=== PATIENT | male | born 1990 | race Caucasian/White ===

== ENCOUNTER 2017-04-05 15:24 | Inpatient (IN) | payer BC, OTHER ==
[~2017-04-05] VITALS: Ht 175.3 cm; Wt 88.5 kg
[2017-04-05 20:30] VITALS: BP 117/63
--- NOTE | 2017-04-05 20:30 | NUR ---
Pre-admission assessment Patient is a 27-year old, male, seen at intake, AAOx4, no SOB and no anxiety noted at this time. Discussed with patient admission policies of the unit. Patient is coherent and able to respond to questions appropriately. Patient reported that he is homeless. Pt is ambulatory with steady gait. Pt reports that he uses Xanax, Phenobarbital, Subutex, Heroin, Alcohol and Cannabis. Per pt, he is originally from [place] but has lived here in [facility] for several months. Vital signs taken and as follows: DZ=188/63, P=104, O2 sat on RA=98%, RR=20, T=98.4. Pt verbalized instructions and teachings regarding disposal of narcotic and other controlled home meds, unit protocols such as taking of vital signs Q4H and handling and disposal of contraband.
[2017-04-05 21:00] VITALS: BP 108/52
[2017-04-05] MEDS ORDERED: NICOTINE 14 MG/24HR PATCH TD PRN (21:00)
[2017-04-05] MEDS ORDERED: MAG HYDROX/AL HYDROX/SIMETH 30 ML LIQUID UDC PO PRN (21:00)
[2017-04-05] MEDS ORDERED: BUPRENORPHINE HCL 2 MG TAB.SUBL SL PRN (21:00)
[2017-04-05] MEDS ORDERED: diphenhydrAMINE 50 MG CAPSULE PO PRN (21:00)
[2017-04-05] MEDS ORDERED: MIRALAX 17 GM POWD.PACK PO PRN (21:00)
[2017-04-05] MEDS ORDERED: ONDANSETRON 4 MG/2 ML VIAL IM PRN (21:00)
[2017-04-05] MEDS ORDERED: DICYCLOMINE HCL 20 MG TABLET PO PRN (21:00)
[2017-04-05] MEDS ORDERED: DIAZEPAM 10 MG TABLET PO PRN ×2 (21:00)
[2017-04-05] MEDS ORDERED: LOPERAMIDE HCL 2 MG CAPSULE PO PRN ×2 (21:00)
[2017-04-05] MEDS ORDERED: ONDANSETRON ODT 4 MG TAB.RAPDIS SL PRN (21:00)
[2017-04-05] MEDS ORDERED: DIAZEPAM 5 MG TABLET PO PRN (21:00)
[2017-04-05] MEDS ORDERED: THIAMINE HCL 200 MG/2 ML VIAL IM ONE (21:00)
[2017-04-05] MEDS ORDERED: NICOTINE POLACRILEX 4 MG GUM-PK OF TEN BC PRN (21:00)
[2017-04-05] MEDS ORDERED: LORAZEPAM 2 MG/1 ML VIAL IM PRN (21:00)
[2017-04-05] MEDS ORDERED: MAGNESIUM HYDROXIDE 30 ML LIQUID UDC PO PRN (21:00)
--- NOTE | 2017-04-05 21:15 | NUR ---
ADMISSION Patient is a 27-year old, male, admitted and escorted by [facility] at 2055 to unit. Patient verbalized that he originally is from [place] but has since for several months is living here in [facility]. Skin check done, no open skin noted. Patient denies Suicidal Ideation nor Homicidal Ideation. No edema noted. Pt is ambulatory with steady gait. Pt stands 5'9" and weighs 195 pounds per standing scale. Vital signs are as follows: BP-108/52, T-98.1, P-107, RR-16 and SPO2 on RA=97%. Patient is AAOx4 and with mild anxiety noted at this time. Lung sounds clear bilaterally upon auscultation. No cough noted and bowel sounds are present on all quadrants. PERRLA and pupils are 3 mm upon visual check. Pt reports being allergic to Naloxone, on Regular Diet and is Full Code. 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 Per pt, withdrawal symptoms are sweating, hot and cold flushes, flu-like symptoms, nausea and vomiting, diarrhea, tremors, anxiety, emotional and photophobia. Pt reports using the following substances: 1) Xanax-started at age 18, reports using 10-12 mg PO or snort daily for the past 12 months, last use was 04/05/2017 AM, 6 mg PO. 2) Phenobarbital-started at age 20, reports using 100 mg PO daily for the past 6 months, last use was 04/05/2017 AM, 100 mg PO 3) Subutex-started at age 20, reports using 16 mg SL daily for the past 6 months, last use was 04/05/2017 AM, 16 mg SL. 4) Heroin-started at age 18, reports using 1-1.5 gms IV, 2x this month03/2017 and per pt, he would use Heroin if he cant have Subutex. Last use was 03/26/2017 AM, 1 gm IV. 5) Ehstmbp-Brijv-gjywlpi at age 18, reports consuming 1500 ml daily for the past 3 months, last drink was 04/05/2017 AM, 1500 ml of 100 proof Vodka. 6) Cannabis-started at age 18, reports smoking 4 mg daily x 9 years, last use was 04/05/2017OM, 4 mg smokes. Patient verbalized the he does not take other substances besides the ones mentioned above. Patient informed PMHx of Anxiety, Depression, Hepatitis C carrier of antibodies, Bipolar Disorder and Withdrawal-induced Seizures-last seizure was in 2010. Per pt, he has no PCP nor Psych MD as of the moment. Home medications are entered in the med recon tab. Patient reports vaping daily, and if he cannot vape then he smokes cigarettes, finishing about 1 pack weekly on average. Oriented patient to room and instructed with the use of the call light, placed within reach. Fall, universal, seizure and safety precautions implemented. No c/o significant pain at this time. All needs met. Information relayed to Dr. Lopez. Patient refused PNA vaccine and Flu vaccine is updated-01/2017. COWS=12 CIWA=11. Will continue to monitor.
[2017-04-05] MEDS ORDERED: LAMO25TA PO (21:16)
[2017-04-05] MEDS ORDERED: LACT10SO PO (21:16)
[2017-04-05] MEDS ORDERED: BUPR8TAB4 SL (21:16)
[2017-04-05] MEDS ORDERED: PHEN16.22 PO (21:16)
[2017-04-05] MEDS ORDERED: TRAZ-147 PO (21:16)
[2017-04-05 21:38] LABS: *AMPHETAMINE, URINE NEGATIVE (NEGATIVE); *BARBITURATE, URINE POSITIVE (NEGATIVE); *CANNABINOID, URINE POSITIVE (NEGATIVE); *COCCAINE, URINE NEGATIVE (NEGATIVE); *OPIATE, URINE NEGATIVE (NEGATIVE); *PHENCYCLIDINE SCREEN,URINE NEGATIVE (NEGATIVE)
[2017-04-05 21:43] LABS: BASOPHILS # (AUTO) 0.1 K/uL (0.0-8.0); BASOPHILS % (AUTO) 0.4 % (0.0-2.0); EOSINOPHILS # (AUTO) 0.5 K/uL (0.0-0.7); EOSINOPHILS % (AUTO) 3.7 % (0.0-7.0); HEMOGLOBIN 14.6 G/DL (14.0-18.0); LYMPHOCYTES # (AUTO) 1.6 K/UL (0.8-4.8); LYMPHOCYTES % (AUTO) 12.1 % (20.5-51.5); MEAN CORPUSCULAR HGB CONC 34 g/dL (32.0-37.0); MEAN CORPUSCULAR VOLUME 88.3 FL (82.0-92.0); MONOCYTES # (AUTO) 0.5 K/UL (0.1-1.30); MONOCYTES % (AUTO) 3.8 % (0.0-11.0); NEUTROPHILS # (AUTO) 10.7 K/UL (1.8-8.9); PLATELET COUNT (AUTO) 284 K/UL (150-450); RED BLOOD CELL COUNT(AUTO) 4.87 MIL/UL (4.7-6.1); WHITE BLOOD COUNT (AUTO) 13.4 K/UL (4.0-11.2)
[2017-04-05 21:48] LABS: ALANINE AMINOTRANSFERASE 40 U/L (16-63); ALKALINE PHOSPHATASE 98 U/L (50-136); AMYLASE 48 U/L (25-115); ASPARTATE AMINOTRANSFERASE 26 U/L (15-37); BILIRUBIN,TOTAL 0.5 mg/dL (0.2-1.0); CARBON DIOXIDE 29 mmol/L (21-32); CHLORIDE 103 mmol/L (98-107); CREATININE 1.1 mg/dL (0.6-1.3); GLUCOSE 89 mg/dL (74-106); POTASSIUM 4.2 mmol/L (3.5-5.1); TOTAL PROTEIN, SERUM 7.2 g/dL (6.4-8.2); UREA NITROGEN, BLOOD 18 mg/dL (7-18)
[2017-04-05 21:54] LABS: ETHANOL < 3 MG/DL (0-0)
[2017-04-05] MEDS ORDERED: PHENOBARBITAL 60 MG TABLET PO SCH (22:00)
--- NOTE | 2017-04-05 22:17 | NUR ---
RN note PRN Subutex Pt noted to be anxious and increasingly shaky. COWS=8. Administered Subutex 4 mg SL. Will reassess. Addendum: 04/05/17 at 2222 by REINALDO JIMENEZ RN COWS=13, and not 8
[2017-04-05] MEDS ORDERED: THIAMINE HCL 200 MG/2 ML VIAL ONE (22:18)
[2017-04-05] MEDS ORDERED: PHENOBARBITAL 60 MG TABLET ONE (22:18)
[2017-04-05] MEDS ORDERED: BUPRENORPHINE HCL 2 MG TAB.SUBL SL ONE (22:29)
--- NOTE | 2017-04-05 23:24 | NUR ---
RN note reassess Pt asleep on bed, no SOB nor facial grimacing noted. COWS=8.
[2017-04-06] VITALS (7 sets, daily range): BP systolic 92–135; BP diastolic 41–80
--- NOTE | 2017-04-06 07:17 | NUR ---
End of Shift Patient is a 27-year old, male, admitted for Alcohol, Opiates and Benzodiazepines Dependence. Pt is allergic to Naloxone, on Regular Diet and is Full Code. 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 Pt placed on 5-day Phenobarbital taper and 5-day Subutex taper, to start today. Pt is AAOx4, is ambulatory with steady gait and with no skin issues. No anxiety noted. No SOB noted. Fall, universal, seizure and safety prec in place. Call light within reach. Latest COWS-6 and CIWA-5, slept for 6 hours. Endorsed to AM shift nurse for continuity of care.
--- NOTE | 2017-04-06 07:30 | NUR ---
START OF SHIFT Pt 27 y/o male admitted for etoh, opiate, and benzo dependence. Pt received in room on bed with eyes closed resting, but easily arousable to name. Pt alert and oriented to name, place, and time. Perrla. Skin warm and slightly moist to touch. Respirations even and unlabored. Bilateral hand tremors noted. It was reported that pt slept for 6 hours of sleep last night. Bed on lowest position with side rails x2 up for safety. Call light within reach. No distress noted at this time.
[2017-04-06] MEDS: MULTIVITAMINS,THERAPEUTIC TABLET PO SCH (08:59)
[2017-04-06] MEDS: PHENOBARBITAL 60 MG TABLET PO SCH ×3 (08:59→20:40)
[2017-04-06] MEDS: FOLIC ACID 1 MG TABLET PO SCH (08:59)
[2017-04-06] MEDS: THIAMINE HCL 100 MG TABLET PO SCH (08:59)
[2017-04-06] MEDS ORDERED: BUPRENORPHINE HCL 2 MG TAB.SUBL SL SCH (09:00)
[2017-04-06] MEDS ORDERED: GABAPENTIN 300 MG CAPSULE PO SCH (09:00)
[2017-04-06] MEDS ORDERED: TUBERCULIN,PURIF.PROT.DERIV. 5 TU/0.1 ML TEST ID ONE (09:00)
--- NOTE | 2017-04-06 12:28 | NUR ---
PRN Pt states feels nauseated. Zofran po odt prn per MD order given and tolerated well.
[2017-04-06] MEDS ORDERED: DIAZEPAM 10 MG TABLET PO ONE (12:45)
--- NOTE | 2017-04-06 13:09 | NUR ---
ONE TIME Pt was seen by MD. ciwa=17. Pt received valium 20mg po x1 dose per MD order and tolerated well.
--- NOTE | 2017-04-06 13:28 | NUR ---
ALISON NICE Pt states he does not feel nauseous at this time.
--- NOTE | 2017-04-06 14:09 | NUR ---
ONE TIME EVAL Pt with ciwa=8.
[2017-04-06] MEDS: GABAPENTIN 300 MG CAPSULE PO SCH ×2 (14:37→20:40)
[2017-04-06] MEDS: BUPRENORPHINE HCL 2 MG TAB.SUBL SL SCH ×2 (14:38→21:07)
[2017-04-06] MEDS: METHOCARBAMOL 750 MG TABLET PO PRN (15:16)
--- NOTE | 2017-04-06 15:17 | NUR ---
PRN Pt states has lower back ache 6/10. Robaxin po prn per MD order given and tolerated well.
--- NOTE | 2017-04-06 16:02 | NUR ---
PRN Pt with ciwa=17. Pt observed with perspiration on face and shoulders, pressured speech, bilateral hand tremors, anxious, and very irritable. Valium 20mg po prn per MD order given and tolerated well.
--- NOTE | 2017-04-06 16:17 | NUR ---
PRN ARLET Pt states back aches 07/22.
--- NOTE | 2017-04-06 17:02 | NUR ---
PRN EVAL Pt with ciwa=6.
--- NOTE | 2017-04-06 18:33 | NUR ---
END OF SHIFT Pt 27 y/o male admitted for etoh, opiate, and benzo dependence. Pt alert and oriented to name, place, and time. Perrla. Skin warm and slightly moist to touch. Respirations even and unlabored. Bilateral hand tremors noted. Pt with episodes of chills and sweats this morning. Pt also with periods of anxiety/ agitation throughout the day. Pt observed mostly in room today. Pt did not attend group activity. Pt was seen by MD today. Pt medication compliant and tolerated well. No ASE noted. Bed on lowest position with side rails x2 up for safety. Call light within reach. No distress noted at this time.
[2017-04-06] MEDS: CLONIDINE HCL 0.1 MG TABLET PO PRN (18:52)
--- NOTE | 2017-04-06 18:53 | NUR ---
PRN Pt with bp= 142/92. Catapres po prn per MD order given and tolerated well.
--- NOTE | 2017-04-06 19:05 | NUR ---
Start of Shift Patient Received. Patient is a 27 year old male admitted on 04/05/17 for ETOH, Opiate, and Benzo Dependence under the care of Dr. Lopez. Patient is currently receiving a 5 day phenobarbital and 5 day Subutex tapers with PRN Valium noted on hand for increased signs and symptoms of withdrawal. Patient verbalizes allergies to Naloxone, wishes to be full code, following a regular diet, placed on fall and seizure precautions, and skin noted intact. Past medical history noted as anxiety, depression, hep C (+), Bipolar Disorder, with history of seizures with last one noted in 2010. Per endorsement, Patient is noted to be high risk for AMA with administration staff aware. Patient received an extra dose of Valium 20mg as well as PRN Valium 20mg for elevated CIWA. Patient was also given PRN Clonidine with medication noted to be effective. Patient noted to be labile, very poor concentration, and pre-concerned with medications despite redirection. All needs attended to promptly. Will continue plan of care as ordered.
[2017-04-07 00:54] VITALS: BP 117/68
[2017-04-07] MEDS: METHOCARBAMOL 750 MG TABLET PO PRN ×2 (00:56→17:59)
[2017-04-07] MEDS: TRAZODONE 100 MG TABLET PO PRN ×2 (00:56→20:46)
[2017-04-07] MEDS: IBUPROFEN 600 MG TABLET PO PRN ×2 (00:56→17:59)
--- NOTE | 2017-04-07 01:00 | NUR ---
PRN Medication Administration Patient is verbalizing increased muscle spasms, pain 7/10 generalized body aches, and inability of falling asleep. PRN Robaxin, Motrin, and trazodone administered as per order. Will continue to monitor.
--- NOTE | 2017-04-07 02:00 | NUR ---
PRN Medication Reassessment Patient noted in bed sleeping. Breathing even and non labored. Patient was given PRN Motrin, Robaxin, and trazodone. Patient continues to sleep with no interruptions noted. Will continue to monitor.
[2017-04-07 04:05] VITALS: BP 102/63
--- NOTE | 2017-04-07 07:08 | NUR ---
End of Shift Patient is in bed sleeping. Breathing even and non labored. Patient is a 27 year old male admitted on 04/05/17 for ETOH, Opiate, and Benzo Dependence under the care of Dr. Lopez. Patient is currently receiving a 5 day phenobarbitol and 5 day Subutex tapers with PRN Valium noted on hand for increased signs and symptoms of withdrawal. Patient verbalizes allergies to Naloxone, Full Code, Regular Diet, placed on fall and seizure precautions, and skin noted intact. Past medical history noted as anxiety, depression, hep C (+), Bipolar Disorder, with history of seizures with last one noted in 2010. Patient received PRN Robaxin, Motrin, and Trazodone with medications noted to be effective. patient continues to be labile, very poor attention spasm, and pre-concerned with medications despite redirection. Last noted COWS 4 and CIWA 5. All needs attended to promptly. Will endorse continue plan of care as ordered.
[2017-04-07 08:00] VITALS: BP 100/63
--- NOTE | 2017-04-07 08:15 | NUR ---
START OF SHIFT: RECEIVED PT A/O X 4. HE C/O ANXIETY AND RESTLESSNESS. HE REPORTS FEELING HOT AND COLD AT TIMES. MILD MUSCLE ACHES ALSO REPORTED. SUBUTEX/PHENO TAPER IN PROGRESS TO MANAGE S/S OF W/D.COWS 4 CIWA 3. ENCOURAGED INCREASED FLUIDS. ENCOURAGED GROUP ATTENDANCE TO IMPROVE COPING SKILLS AND PREVENT RELAPSE. WILL CONTINUE TO MONITOR.
[2017-04-07] MEDS ORDERED: BUPRENORPHINE HCL 2 MG TAB.SUBL SL SCH ×2 (09:00→15:00)
[2017-04-07] MEDS: MULTIVITAMINS,THERAPEUTIC TABLET PO SCH (09:45)
[2017-04-07] MEDS: FOLIC ACID 1 MG TABLET PO SCH (09:45)
[2017-04-07] MEDS: THIAMINE HCL 100 MG TABLET PO SCH (09:46)
[2017-04-07] MEDS: GABAPENTIN 300 MG CAPSULE PO SCH ×3 (09:46→20:44)
[2017-04-07] MEDS: BUPRENORPHINE HCL 2 MG TAB.SUBL SL SCH ×3 (09:46→20:45)
[2017-04-07] MEDS: PHENOBARBITAL 60 MG TABLET PO SCH ×3 (09:47→20:44)
[2017-04-07 12:00] VITALS: BP 126/64
[2017-04-07] MEDS ORDERED: CLONIDINE HCL 0.1 MG TABLET PO ONE (12:30)
[2017-04-07] MEDS ORDERED: DIAZEPAM 10 MG TABLET PO ONE (12:30)
[2017-04-07] MEDS ORDERED: HYDROXYZINE PAMOATE 25 MG CAPSULE PO ONE (12:30)
[2017-04-07] MEDS ORDERED: HYDROXYZINE PAMOATE 25 MG CAPSULE PO PRN (12:30)
--- NOTE | 2017-04-07 12:42 | NUR ---
Therapist prompted client to come into group today and not isolate in his room. Client agreed to come to group.
[2017-04-07] MEDS: ACETAMINOPHEN 325 MG TABLET PO PRN ×2 (12:53→20:44)
[2017-04-07] MEDS: BACLOFEN 10 MG TABLET PO SCH ×2 (14:28→20:43)
[2017-04-07 16:00] VITALS: BP 131/70
[2017-04-07] MEDS: CLONIDINE HCL 0.1 MG TABLET PO PRN (17:59)
--- NOTE | 2017-04-07 18:03 | NUR ---
PRN MOTRIN,ROBAXIN,CLONIDINE AND VISTARIL GIVEN FOR REPORTED MUSCLE ACHES,H/A 5/10 ON SCALE ANXIETY AND CHILLS. WILL MONITOR EFFECTIVENESS.
--- NOTE | 2017-04-07 18:44 | NUR ---
PT STATES PRN MEDS WERE MILDLY EFFECTIVE.HE STATES H/A IS GONE.
--- NOTE | 2017-04-07 18:45 | NUR ---
END OF SHIFT: PT CONTINUES ON PHENO.SUBUTEX TAPER. HE WAS GIVEN A ONE TIME 10 MG VALIUM PER MD AND IT WAS EFFECTIVE. PT TRIED TO GET PRN VALIUM LATE THIS AFTERNOON BUT CIWA SCORES DID NOT PERMIT. ADMINISTERED PRN CLONIDINE,VISTARIL,MOTRIN AND ROBAXIN GIVEN AND MILDLY EFFECTIVE FOR S/S OF W/D. LAST COWS 4 CIWA 4. ENCOURAGED OT TO INCREASE FLUIDS. PT EDUCATED ON DEEP BREATHING EXERCISES TO ASSIST IN RELIEVING ANXIETY. WILL PASS SHIFT REPORT TO ONCOMING NIGHT NURSE.
--- NOTE | 2017-04-07 19:00 | NUR ---
Start of Shift Note: Report received from day shift nurse. Pt is a 27M, admitted for Benzo, Phenobarb, Opiate, ETOH dependence. Pt was in group activity during the start of shift. Pt is AOx4 without s/s of acute distress. Pt is full code, on regular diet, and on fall/seizure precautions. Pt noted with allergy to Naloxone. Pt reports hx of anxiety, depression, hep C, Bipolar disorder, and withdrawal-induced seizures. Pt is currently on 5-day Phenobarbital taper and 5-day Subutex taper to manage withdrawal symptoms. Per day shift nurse. Last COWS was 4 and last CIWA was 4 at 1600. Bed in lowest position. Side rails up x2. Call light functioning and within reach. All needs attended and met. Will continue to monitor.
[2017-04-07 20:00] VITALS: BP 126/74
[2017-04-07] MEDS: CLONIDINE HCL 0.1 MG TABLET PO SCH (20:45)
--- NOTE | 2017-04-07 20:45 | NUR ---
PRN Tylenol and PRN Trazodone: Pt c/o of 01/22 pain. Pt stated that he is having migraines. Pt also requested medication for sleep. PRN Tylenol and PRN Trazodone given as ordered. Will continue to monitor.
--- NOTE | 2017-04-07 21:45 | NUR ---
PRN Tylenol and PRN Trazodone Reassessment: Pt stated headache is better. Pain level 3/10. Pt is also feeling effects of Trazodone and is ready for sleep. Will continue to monitor.
[2017-04-08] VITALS: BP 111/63
[2017-04-08 04:00] VITALS: BP 128/83
[2017-04-08 05:06] LABS: HEPATITIS B SURFACE AG Negative (Negative)
[2017-04-08] MEDS: METHOCARBAMOL 750 MG TABLET PO PRN (06:00)
--- NOTE | 2017-04-08 06:00 | NUR ---
Toradol PRN and Robaxin PRN: Pt c/o worse migraine 12/22. Pt also c/o general body aches. Toradol PRN and Robaxin PRN given as ordered. Will continue to monitor.
[2017-04-08] MEDS: KETOROLAC TROMETHAMINE 30 MG INJ IM PRN (06:02)
--- NOTE | 2017-04-08 07:21 | NUR ---
End of Shift Notes: Pt is 27M, a 27M, admitted for Benzo, Phenobarb, Opiate, ETOH dependence. Pt is AOx4 without s/s of acute distress. Pt is full code, on regular diet, and on fall/seizure precautions. Pt noted with allergy to Naloxone. Pt reports hx of anxiety, depression, hep C, Bipolar disorder, and withdrawal-induced seizures. Pt is currently on 5-day Phenobarbital taper and 5-day Subutex taper to manage withdrawal symptoms. Pt slept for 7 hours. Last COWS score was 13 and last CIWA score was 8 at 0400. Pt c/o Migraine and generalized body pain. Tylenol, Robaxin, and Toradol PRN given as ordered. No N/V noted during the shift. Fall and Sz precautions observed. Bed in lowest position. Side rails up x2. Call light functioning and within reach. All needs attended and met. Will endorse to day shift nurse.
--- NOTE | 2017-04-08 07:39 | NUR ---
START OF SHIFT NOTE: Received report from chair and couch maker nurse. Pt 27 y/o male admitted for etoh, opiate, and benzo dependence. Pt is on a 5 day Phenobarb and 5 day Subutex taper. Tolerating well. Pt is alert and oriented X4. Color good, skin warm and dry. Resting in bed. Safety precautions observed. Call light within reach. Will continue to monitor.
[2017-04-08 08:19] VITALS: BP 119/83
[2017-04-08] MEDS: PHENOBARBITAL 60 MG TABLET PO SCH ×4 (08:44→20:10)
[2017-04-08] MEDS: MULTIVITAMINS,THERAPEUTIC TABLET PO SCH (08:46)
[2017-04-08] MEDS: FOLIC ACID 1 MG TABLET PO SCH (08:46)
[2017-04-08] MEDS: THIAMINE HCL 100 MG TABLET PO SCH (08:46)
[2017-04-08] MEDS: GABAPENTIN 300 MG CAPSULE PO SCH (08:46)
[2017-04-08] MEDS: CLONIDINE HCL 0.1 MG TABLET PO SCH ×3 (08:47→20:10)
[2017-04-08] MEDS: BACLOFEN 10 MG TABLET PO SCH (08:47)
[2017-04-08] MEDS ORDERED: BUPRENORPHINE HCL 2 MG TAB.SUBL SL SCH ×2 (09:00)
--- NOTE | 2017-04-08 09:00 | NUR ---
VSS COWS 6 CIWA 2 Pt c/o mild body aches, runny nose, sweating. Pt refused Subutex. States "I want to get off the stuff."
--- NOTE | 2017-04-08 09:10 | NUR ---
Flu shot administered LD Addendum: 04/08/17 at 1012 by YUDELKA SMITH RN Please disregard above
[2017-04-08 12:00] VITALS: BP 126/72
[2017-04-08] MEDS: DIAZEPAM 10 MG TABLET PO SCH ×2 (12:56→20:10)
--- NOTE | 2017-04-08 13:00 | NUR ---
VSS CIWA 7 c/o anxiety, muscle aches, stuffy nose
[2017-04-08] MEDS: BACLOFEN 20 MG TABLET PO SCH ×2 (14:21→20:10)
[2017-04-08] MEDS: GABAPENTIN 400 MG CAPSULE PO SCH ×2 (14:21→20:10)
[2017-04-08 17:06] VITALS: BP 128/78
--- NOTE | 2017-04-08 18:29 | NUR ---
END OF SHIFT NOTE: Report given to third shift lieutenant nurse. Pt 27 y/o male admitted for etoh, opiate, and benzo dependence. Pt is on a 5 day Phenobarb taper. Subutex taper dc'd. Tolerating well. Pt is alert and oriented X4. Color good, skin warm and dry. Safety precautions observed. Vital signs have remained stable throughout shift. Last CIWA 7 . Safety precautions observed .Call light within reach.
--- NOTE | 2017-04-08 19:10 | NUR ---
Start of shift note Received report from day shift nurse. Pt is a 27 yo male, A+Ox4, presenting to [facility] for Opiate/Benzo/ETOH dependence. Pt has Allergies to Naloxone, is on Full code status, and on Regular diet. Pt is on Fall and Seizure precautions. Pt has HX of Anxiety, depression, Hep C, Bipolar disorder, and Seizure. Pt is on 5 day Phenobarbital and 5 day Valium taper, tolerated well. No s/s of distress noted at this time. Respirations even and unlabored. Will continue to monitor.
[2017-04-08 20:10] VITALS: BP 121/71
[2017-04-08] MEDS: TRAZODONE 100 MG TABLET PO PRN (20:18)
--- NOTE | 2017-04-08 20:18 | NUR ---
PRN Trazodone Pt c/o inability to sleep and requested for PRN Trazodone. Medication given and tolerated well. Will reassess within1 HR. Will continue to monitor.
--- NOTE | 2017-04-08 21:15 | NUR ---
PRN Trazodone Reassessment Medication effective. Pt is resting well in bed. No s/s of ASE/distress noted at this time. Respirations even and unlabored. Will continue to monitor.
[2017-04-09 00:11] VITALS: BP 119/68
[2017-04-09 04:14] VITALS: BP 114/63
--- NOTE | 2017-04-09 06:54 | NUR ---
End of shift note Pt is a 27 yo male, A+Ox4, presenting to [facility] for Opiate/Benzo/ETOH dependence. Pt has Allergies to Naloxone, is on Full code status, and on Regular diet. Pt is on Fall and Seizure precautions. Pt has HX of Anxiety, depression, Hep C, Bipolar disorder, and Seizure. Pt is on 5 day Phenobarbital and 5 day Valium taper, tolerated well. Pt was given PRN Trazodone @2018. Pt slept for a total of 6 HRS. Last COWS: 3 and Last CIWA: 3 @0400. No s/s of distress noted at this time. Respirations even and unlabored. Will endorse to day shift nurse.
--- NOTE | 2017-04-09 07:55 | NUR ---
START OF SHIFT NOTE Received report from night nurse, 49 year old male admitted for Opiate/Benzo/ETOH dependence. Patient has a PMH of Anxiety, depression, Hep C, Bipolar disorder, and Seizure. Patient is on 5 day Phenobarbital and 5 day Valium taper. Per endorsement patient received PRN Trazodone effective per night nurse, last COWS-3, CIWA-3, slept for 6 hours. Patient received awake, alert and oriented x4, Educated patient regarding plan of care for the day and medication regimen with good verbal understanding. Safety measures in place. call light with in reach, will continue to monitor. Addendum: 04/11/17 at 0752 by CLAUDIA GODDARD LVN Patient is 27 year old male.
[2017-04-09 08:00] VITALS: BP 110/66
[2017-04-09] MEDS: FOLIC ACID 1 MG TABLET PO SCH (08:06)
[2017-04-09] MEDS: THIAMINE HCL 100 MG TABLET PO SCH (08:06)
[2017-04-09] MEDS: MULTIVITAMINS,THERAPEUTIC TABLET PO SCH (08:06)
[2017-04-09] MEDS: BACLOFEN 20 MG TABLET PO SCH ×3 (08:06→20:43)
[2017-04-09] MEDS: PHENOBARBITAL 60 MG TABLET PO SCH ×3 (08:07→20:43)
[2017-04-09] MEDS: GABAPENTIN 400 MG CAPSULE PO SCH (08:07)
[2017-04-09] MEDS: CLONIDINE HCL 0.1 MG TABLET PO SCH ×2 (08:08→14:11)
[2017-04-09] MEDS ORDERED: BUPRENORPHINE HCL 2 MG TAB.SUBL SL SCH ×3 (09:00→21:00)
[2017-04-09] MEDS: HYDROXYZINE PAMOATE 25 MG CAPSULE PO PRN (09:56)
[2017-04-09] MEDS: KETOROLAC TROMETHAMINE 30 MG INJ IM PRN (10:04)
--- NOTE | 2017-04-09 10:04 | NUR ---
PRN TORADOL/VISTARIL Patient c/o of anxiety, agitation, lower back pain 12/22. Medicated patient with PRN Vistaril 50mg Po, Toradol 30mg IM as ordered. Will cont to monitor and reassess.
--- NOTE | 2017-04-09 10:34 | NUR ---
TORADOL REASSESSMENT Patient reported Toradol effective in alleviating pain, pain level noted 2/10.
--- NOTE | 2017-04-09 11:04 | NUR ---
VISTARIL REASSESSMENT Upon reassessment patient reported medication effective anxiety and agitation decreased.
[2017-04-09] MEDS ORDERED: CLONIDINE HCL 0.2 MG TABLET PO PRN (11:45)
[2017-04-09 12:00] VITALS: BP 136/73
[2017-04-09] MEDS: DIAZEPAM 10 MG TABLET PO SCH ×2 (12:12→20:43)
[2017-04-09] MEDS: CLONIDINE HCL 0.1 MG TABLET PO PRN (12:12)
[2017-04-09] MEDS: METHOCARBAMOL 750 MG TABLET PO PRN (12:12)
--- NOTE | 2017-04-09 12:13 | NUR ---
Robaxin 750mg PO given/Clonidine 0.1mg PO given: Patient's CIWA 7, appears anxious, tearful and agitated with complains of 6/10 pain. Non-pharmacological interventions provided but ineffective. Medicated patient with Robaxin 750 mg PO and Clonidine 0.1mg PO as ordered.
--- NOTE | 2017-04-09 13:13 | NUR ---
ROBAXIN/CLONIDINE REASSESSMENT Patient reported medication effective in alleviating pain 2/10 and anxiety.
[2017-04-09] MEDS: GABAPENTIN 300 MG CAPSULE PO SCH ×2 (14:11→20:43)
[2017-04-09 16:00] VITALS: BP 122/71
--- NOTE | 2017-04-09 19:18 | NUR ---
END OF SHIFT NOTE Patient cont with Phenobarbital taper and Valium taper tolerating well. Patient presented with anxiety, Chills hot cold flashes, body aches, agitation, Tremors, stomach cramps, Scheduled /PRN Toradol, clonidine, Robaxin, Vistaril medications administered noted to be effective. Pt Encouraged Po fluids as tolerated. Pt's last COWS score was 4/CIWA-3 at 1600. Vital signs WNL. All needs met. Safety measures in place, call light within reach. Pt endorsed to night nurse in stable condition.
--- NOTE | 2017-04-09 19:19 | NUR ---
Start of shift note Received report from day shift nurse. Pt is a 27 yo male, A+Ox4, presenting to [facility] for Opiate/Benzo/ETOH dependence. Pt has Allergies to Naloxone, is on Full code status, and on Regular diet. Pt is on Fall and Seizure precautions. Pt has HX of Anxiety, depression, Hep C, Bipolar disorder, and Seizure. Pt is on 5 day Phenobarbital and 5 day Valium taper, tolerated well. No s/s of distress noted at this time. Respirations even and unlabored. Will continue to monitor.
[2017-04-09] MEDS ORDERED: BUPRENORPHINE HCL 2 MG TAB.SUBL SL PRN (20:00)
[2017-04-09 20:19] VITALS: BP 122/64
[2017-04-09] MEDS: CLONIDINE HCL 0.2 MG TABLET PO SCH (20:44)
[2017-04-09] MEDS ORDERED: BUPRENORPHINE HCL 2 MG TAB.SUBL SL ONE (20:53)
[2017-04-09] MEDS: TRAZODONE 100 MG TABLET PO PRN (21:04)
--- NOTE | 2017-04-09 21:04 | NUR ---
PRN Trazodone Pt c/o inability to sleep and requested for PRN Trazodone. Medication given and tolerated well. Will reassess within1 HR. Will continue to monitor.
[2017-04-10 00:15] VITALS: BP 106/71
[2017-04-10] MEDS: METHOCARBAMOL 750 MG TABLET PO PRN ×2 (01:21→13:12)
[2017-04-10] MEDS: CLONIDINE HCL 0.1 MG TABLET PO PRN (01:21)
--- NOTE | 2017-04-10 01:21 | NUR ---
PRN Robaxin and Clonidine Pt c/o anxiety and muscle pain and requested for PRN Robaxin and Clonidine. Medications given and tolerated well. Will reassess within 1 HR. Will continue to monitor.
--- NOTE | 2017-04-10 02:20 | NUR ---
PRN Robaxin and Clonidine Reassessment Medications effective. Pt is resting in bed. No s/s of ASE/distress noted at this time. Respirations even and unlabored. Will continue to monitor.
[2017-04-10 04:24] VITALS: BP 112/72
--- NOTE | 2017-04-10 07:00 | NUR ---
End of shift note Pt is a 27 yo male, A+Ox4, presenting to [facility] for Opiate/Benzo/ETOH dependence. Pt has Allergies to Naloxone, is on Full code status, and on Regular diet. Pt is on Fall and Seizure precautions. Pt has HX of Anxiety, depression, Hep C, Bipolar disorder, and Seizure. Pt is on 5 day Phenobarbital and 5 day Valium taper, tolerated well. Pt was given PRN Trazodone @2104 and PRN Robaxin and Clonidine @0121. Pt slept for a total of 7 HRS. Last COWS: 4 and Last CIWA: 3 @0400. No s/s of distress noted at this time. Respirations even and unlabored. Will endorse to day shift nurse.
[2017-04-10 08:00] VITALS: BP 114/62
--- NOTE | 2017-04-10 08:06 | NUR ---
START OF SHIFT NOTE Received report from night nurse, 49 year old male admitted for Opiate/Benzo/ETOH dependence. Patient has a PMH of Anxiety, depression, Hep C, Bipolar disorder, and Seizure. Patient is on 5 day Phenobarbital and 5 day Valium taper. Per endorsement patient received PRN Trazodone/Robaxin/Clonidine effective per night nurse, last COWS-4, CIWA-3, slept for 7 hours. Patient received awake, alert and oriented x4, Educated patient regarding plan of care for the day and medication regimen with good verbal understanding. Safety measures in place. call light with in reach, will continue to monitor. Addendum: 04/11/17 at 0753 by CLAUDIA GODDARD LVN Patient is 27 year old male.
[2017-04-10] MEDS: GABAPENTIN 300 MG CAPSULE PO SCH ×3 (08:31→21:38)
[2017-04-10] MEDS: FOLIC ACID 1 MG TABLET PO SCH (08:31)
[2017-04-10] MEDS: MULTIVITAMINS,THERAPEUTIC TABLET PO SCH (08:31)
[2017-04-10] MEDS: CLONIDINE HCL 0.1 MG TABLET PO SCH ×2 (08:32→14:30)
[2017-04-10] MEDS: PHENOBARBITAL 60 MG TABLET PO SCH ×2 (08:32→21:39)
[2017-04-10] MEDS: BACLOFEN 20 MG TABLET PO SCH ×3 (08:32→21:38)
[2017-04-10] MEDS: BUPRENORPHINE HCL 2 MG TAB.SUBL SL SCH ×3 (08:33→21:38)
[2017-04-10] MEDS: THIAMINE HCL 100 MG TABLET PO SCH (08:43)
[2017-04-10] MEDS ORDERED: BUPRENORPHINE HCL 2 MG TAB.SUBL SL SCH (09:00)
[2017-04-10 12:00] VITALS: BP 127/60
[2017-04-10] MEDS: HYDROXYZINE PAMOATE 25 MG CAPSULE PO PRN (13:14)
--- NOTE | 2017-04-10 13:14 | NUR ---
PRN ROBAXIN/VISTARIL Patient c/o anxiety, agitation, muscle aches 5/10. Medicated patient with PRN [id number] Po/Vistaril 50mg Po as ordered. Will cont to monitor and reassess.
--- NOTE | 2017-04-10 14:14 | NUR ---
REASSESSMENT ROBAXIN/VISTARIL Per pt medications were effective anxiety, agitation, and muscle cramps decreased to 2/10.
[2017-04-10] MEDS ORDERED: ASPIRIN/ACETAMINOPHEN/CAFFEINE TABLET PO PRN (14:30)
--- NOTE | 2017-04-10 14:39 | NUR ---
x1 ORDER OF TRILEPTAL Patient was seen by MD with new one time order of Trileptal 300mg Po, medication administered as ordered, patient tolerated well.
[2017-04-10] MEDS ORDERED: OXCARBAZEPINE 300 MG TABLET PO ONE (15:00)
[2017-04-10 16:00] VITALS: BP 135/72
--- NOTE | 2017-04-10 17:20 | NUR ---
Therapist prompted client to come to group today and not isolate, Client agreed to attend group
--- NOTE | 2017-04-10 19:25 | NUR ---
END OF SHIFT NOTE Patient presented with anxiety, Chills hot cold flashes, body aches, agitation, Tremors, stomach cramps, Scheduled /PRN Robaxin, Vistaril medications administered noted to be effective. Patient also received one time dose of Trileptal 300mg Po. Pt Encouraged Po fluids as tolerated. Pt's last COWS score was 5/CIWA-4 at 1600. Vital signs WNL. All needs met. Safety measures in place, call light within reach. Pt endorsed to night nurse in stable condition.
--- NOTE | 2017-04-10 19:30 | NUR ---
Start of Shift Note: Patient is a 27 y/o male admitted on 04/05/17 for Xanax, Phenobarbital, Subutex & Alcohol dependence. Patient has PMHx of Anxiety, Depression, Hep C, Bipolar disorder, and hx of withdrawal induced seizure. Seizure and Fall precaution noted. Patient is on a regular diet with allergies to Naloxone. Full Code status. Patient is on a 5-day Phenobarbital and Subutex taper and tolerating well. Last COWS 5 CIWA 4. Pt was given PRN Robaxin and Vistaril during day shift and a one time dose of Trileptal 300mg for anxiety. Patient is alert & oriented to name, palce & situation. Pt is ambulatory with a steady gait. Patient is stable. No shortness of breath noted. Respiration even & unlabored. Abdomen soft & non-distended. No nausea/vomiting noted. Pt complained of stomach cramps, sweating, chills, 5/10 generalized body aches & mild anxiety. Safety measures in place. bed locked in lowest position. Both side rails up. Call light within pt's reach. Will continue to monitor patient.
[2017-04-10 20:00] VITALS: BP 137/75
[2017-04-10] MEDS: OXCARBAZEPINE 300 MG TABLET PO SCH (21:38)
[2017-04-10] MEDS: CLONIDINE HCL 0.2 MG TABLET PO SCH (21:39)
--- NOTE | 2017-04-10 22:26 | NUR ---
PRN Trazodone Patient requesting for sleeping medication. Pt unable to fall asleep. PRN Trazodone administered as ordered. Will continue to monitor patient.
[2017-04-10] MEDS ORDERED: TRAZODONE 50 MG TABLET PO ONE (22:30)
[2017-04-11] VITALS: BP 115/72
[2017-04-11 04:00] VITALS: BP 122/78
--- NOTE | 2017-04-11 07:20 | NUR ---
End of Shift Note: Pt had an uneventful night. Patient remains stable and vitals noted WNL. Pt continues on his Subutex & Phenobarbital taper and tolerating well. Last COWS 5 CIWA 4. Pt remained compliant with medications and treatment plan. Medications effective in reducing withdrawal symptoms. Pt received PRN Trazodone for sleep and was effective. Pt slept for a total of 5 hours. Fluid intake: 2450ml, Voided 4x with no bowel movement. All needs attended & met. Safety measures in place. Will endorse pt to day shift nurse.
--- NOTE | 2017-04-11 07:53 | NUR ---
START OF SHIFT NOTE Received report from night nurse, 27 year old male admitted for Opiate/Benzo/ETOH dependence. Patient has a PMH of Anxiety, depression, Hep C, Bipolar disorder, and Seizure. Per endorsement patient received PRN Trazodone effective per night nurse, last COWS-5, CIWA-4, slept for 5 hours. Patient received awake, alert and oriented x4, Educated patient regarding plan of care for the day and medication regimen with good verbal understanding. Safety measures in place. call light with in reach, will continue to monitor.
[2017-04-11 08:00] VITALS: BP 118/74
[2017-04-11] MEDS: THIAMINE HCL 100 MG TABLET PO SCH (08:49)
[2017-04-11] MEDS: OXCARBAZEPINE 300 MG TABLET PO SCH ×2 (08:49→20:02)
[2017-04-11] MEDS: BACLOFEN 20 MG TABLET PO SCH ×3 (08:49→20:02)
[2017-04-11] MEDS: FOLIC ACID 1 MG TABLET PO SCH (08:49)
[2017-04-11] MEDS: MULTIVITAMINS,THERAPEUTIC TABLET PO SCH (08:49)
[2017-04-11] MEDS: GABAPENTIN 300 MG CAPSULE PO SCH ×3 (08:49→20:02)
[2017-04-11] MEDS: CLONIDINE HCL 0.1 MG TABLET PO SCH ×2 (08:51→14:21)
[2017-04-11] MEDS ORDERED: BUPRENORPHINE HCL 2 MG TAB.SUBL SL SCH ×2 (09:00)
[2017-04-11] MEDS ORDERED: PHENOBARBITAL 60 MG TABLET PO SCH (09:00)
[2017-04-11 12:00] VITALS: BP 119/82
[2017-04-11 16:00] VITALS: BP 146/97
[2017-04-11] MEDS: METHOCARBAMOL 750 MG TABLET PO PRN (16:29)
[2017-04-11] MEDS: CLONIDINE HCL 0.1 MG TABLET PO PRN (16:30)
--- NOTE | 2017-04-11 16:30 | NUR ---
PRN ROBAXIN/CLONIDINE Patient c/o of muscle cramps, and also noted with elevated blood pressure 146/97. PRN Clonidine 0.1mg Po/Robaxin 750mg Po administered as ordered. Will cont to monitor and reassess.
--- NOTE | 2017-04-11 17:30 | NUR ---
ROBAXIN/CLONIDINE REASSESSMENT Per endorsement patient reported medication effective muscle cramps subside and patient's blood pressure decreased to 136/88.
--- NOTE | 2017-04-11 19:10 | NUR ---
END OF SHIFT NOTE Patient presented with anxiety, Chills hot cold flashes, body aches, agitation, Tremors, stomach cramps,elevated blood pressure Scheduled /PRN Robaxin, Clonidine medications administered noted to be effective. Pt Encouraged Po fluids as tolerated. Pt's last COWS score was 3/CIWA-2 at 1600. Patient scheduled for discharge in AM. Vital signs WNL. All needs met. Safety measures in place, call light within reach. Pt endorsed to night nurse in stable condition.
--- NOTE | 2017-04-11 19:15 | NUR ---
Start of Shift Note: Patient is a 27 y/o male admitted on 04/05/17 for Xanax, Phenobarbital, Subutex & Alcohol dependence. Patient has PMHx of Anxiety, Depression, Hep C, Bipolar disorder, and hx of withdrawal induced seizure. Seizure and Fall precaution noted. Patient is on a regular diet with allergies to Naloxone. Full Code status. Patient completed his Phenobarbital and Subutex taper and he is scheduled to be discharge tomorrow. Last COWS 3 CIWA 2. Pt was given PRN Robaxin and Clonidine during day shift. Patient is alert & oriented to name, place & situation. Pt is ambulatory with a steady gait. Patient is stable. No shortness of breath noted. Respiration even & unlabored. Abdomen soft & non-distended. No nausea/vomiting noted. Pt complained of mild anxiety and mild discomfort. hand tremors felt. No hallucinations noted. Safety measures in place. bed locked in lowest position. Both side rails up. Call light within pt's reach. Will continue to monitor patient.
[2017-04-11 20:00] VITALS: BP 149/85
[2017-04-11] MEDS: CLONIDINE HCL 0.2 MG TABLET PO SCH (20:02)
[2017-04-11] MEDS: TRAZODONE 100 MG TABLET PO PRN (20:02)
[2017-04-11] MEDS ORDERED: BACL20TA PO (20:04)
[2017-04-11] MEDS ORDERED: DICY20TA28 PO (20:04)
[2017-04-11] MEDS ORDERED: CLON0.1T14 PO (20:04)
[2017-04-11] MEDS ORDERED: HYDR-3895 PO (20:04)
[2017-04-11] MEDS ORDERED: CLON0.2T12 PO (20:04)
[2017-04-11] MEDS ORDERED: IBUP-1955 PO (20:04)
[2017-04-11] MEDS ORDERED: GABA-534 PO (20:04)
[2017-04-11] MEDS ORDERED: OXCA300T4 PO (20:04)
[2017-04-12] VITALS: BP 128/76
[2017-04-12] MEDS: KETOROLAC TROMETHAMINE 30 MG INJ IM PRN (03:43)
--- NOTE | 2017-04-12 03:43 | NUR ---
PRn Toradol Patient complains of 8/10 sciatic pain on his right buttock. Pt appears restless and with facial grimacing noted d/t pain. PRN Toradol IM administered on right buttock as ordered. Will continue to monitor patient.
[2017-04-12 04:00] VITALS: BP 128/61
--- NOTE | 2017-04-12 04:43 | NUR ---
PRN Reassessment Patient asleep in bed and appears comfortable. No facial grimacing noted. Safety measures in place. Will continue to monitor patient.
--- NOTE | 2017-04-12 06:59 | NUR ---
End of Shift Note: Pt had an uneventful night. Patient remains stable and vitals noted WNL. Pt completed his Subutex and Phenobarbital taper and is scheduled to be discharge today. Last COWS 2 CIWA 3. Pt remained compliant with medications and treatment plan. Pt received PRn Trazodone and Toradol during my shift and were effective. Pt slept for a total of 6 hours. Fluid intake: 1800ml, Voided 3x with 2x bowel movement. All needs attended & met. Safety measures in place. Will endorse pt to day shift nurse.
--- NOTE | 2017-04-12 07:43 | NUR ---
Start of shift note; Received report from night nurse. Patient is a 27 year old male admitted on 04/05/17 for Opiate/ Benzodiazepine/ETOH dependence. Patient completed 5 day Phenobarbital and 5 day Subutex tapers. Patient reported allergies to naloxone. On full code status, regular diet. Patient is medically cleared for discharge today. All safety measures secured. Will continue to monitor patient.
[2017-04-12 08:00] VITALS: BP 100/60
[2017-04-12 08:38] VITALS: BP 100/60
[2017-04-12] MEDS: OXCARBAZEPINE 300 MG TABLET PO SCH (08:38)
[2017-04-12] MEDS: MULTIVITAMINS,THERAPEUTIC TABLET PO SCH (08:38)
[2017-04-12] MEDS: CLONIDINE HCL 0.1 MG TABLET PO SCH (08:38)
[2017-04-12] MEDS: FOLIC ACID 1 MG TABLET PO SCH (08:38)
[2017-04-12] MEDS: BACLOFEN 20 MG TABLET PO SCH (08:38)
[2017-04-12] MEDS: THIAMINE HCL 100 MG TABLET PO SCH (08:38)
[2017-04-12] MEDS: GABAPENTIN 300 MG CAPSULE PO SCH (08:38)
[2017-04-12] MEDS ORDERED: BUPRENORPHINE HCL 2 MG TAB.SUBL SL SCH (09:00)
[2017-04-12] MEDS: IBUPROFEN 600 MG TABLET PO PRN (09:38)
--- NOTE | 2017-04-12 09:39 | NUR ---
PRN medication; Patient is complaining of mild back pain rated 5/10 on pain scale. PRN Motrin 600mg PO given. Will continue to monitor for effectiveness of medication.
--- NOTE | 2017-04-12 09:53 | NUR ---
Discharge note; Patient is AOX4. Patient completed treatment without any adverse reactions. Patient is medically cleared for discharge today. All valuables, belongings and medication returned to patient. Patient denies suicidal ideations. Vital signs are stable. Patient was escorted out of the hospital by [facility]. Patient left in a stable condition.
== END 2017-04-12 09:53 | disposition other institution (70) | DRG 895 ==
LOC: SRC 19:23
PROVIDERS: ADMIT Internal Medicine; ATTEND Internal Medicine
PROC: HZ2ZZZZ Detoxification Services for Substance Abuse Treatment (ICD-10-PCS; principal; 2017-04-05)
PROC: HZ31ZZZ Individual Counseling for Substance Abuse Treatment, Behavioral (ICD-10-PCS; 2017-04-07)
PROC: HZ41ZZZ Group Counseling for Substance Abuse Treatment, Behavioral (ICD-10-PCS; 2017-04-07)
DX: F10.232 Alcohol dependence with withdrawal with perceptual disturbance (principal); I15.9 Secondary hypertension, unspecified; F31.9 Bipolar disorder, unspecified; F13.232 Sedative, hypnotic or anxiolytic dependence with withdrawal with perceptual disturbance; F11.23 Opioid dependence with withdrawal; Y90.0 Blood alcohol level of less than 20 mg/100 ml; Z81.1 Family history of alcohol abuse and dependence; F17.290 Nicotine dependence, other tobacco product, uncomplicated; F41.9 Anxiety disorder, unspecified; Z91.89 Other specified personal risk factors, not elsewhere classified; F12.90 Cannabis use, unspecified, uncomplicated; B18.2 Chronic viral hepatitis C; F14.10 Cocaine abuse, uncomplicated; D72.823 Leukemoid reaction
CPT/HCPCS: 36415; 70030-TC; 80307; 80345; 80346; 80349; 83735; 85025; 86580; 86592; 86705; 86803; 87340; 87806; A4663; G0480; J1885; J3411; J8499; Q0162